=== PATIENT | male | born 1985 | race Caucasian/White ===

== ENCOUNTER 2022-10-02 03:38 | Emergency (ER) | payer OTHER ==
[2022-10-02] MEDS ORDERED: ONDANSETRON 4 MG/2 ML VIAL IVP STA (04:05)
[2022-10-02] MEDS ORDERED: SODIUM CHLORIDE 0.9% 1,000 ML IV STA (04:05)
[2022-10-02] MEDS ORDERED: KETOROLAC 15 MG/ML 1 ML VIAL IVP STA (04:05)
[2022-10-02] MEDS ORDERED: PANTOPRAZOLE 40 MG/10 ML VIAL IVP STA (04:05)
[2022-10-02] MEDS ORDERED: MORPHINE SULFATE 4 MG/ML SYRINGE IVP STA (04:12)
[2022-10-02 04:30] LABS: Basophils % (A) 0 %; Eosinophils # (A) 0.4 k/uL (0-0.7); Eosinophils % (A) 4 %; HCT 46.5 % (39.0-53.0); HGB 15.9 gm/dL (13.0-17.5); Lymphocytes # (A) 2.7 k/uL (1.0-4.8); Lymphocytes % (A) 29 %; MCH 29.1 pg (25.0-35.0); MCHC 34.3 g/dL (31.0-37.0); MCV 84.8 fL (80.0-100.0); Mean Platelet Volume 9.3; Monocytes # (A) 0.5 k/uL (0-1.0); Monocytes % (A) 5 %; Neutrophils # (A) 5.4 k/uL (1.3-7.7); Neutrophils % (A) 60 %; Platelet Count 364 k/uL (150-450); RBC 5.48 m/uL (4.30-5.90); RDW 12.5 % (11.5-15.5); WBC 9.1 k/uL (3.8-10.6)
[2022-10-02 04:39] LABS: INR 0.9 (<1.2); Partial Thromboplastin Time 24.8 sec (22.0-30.0); Prothrombin Time 9.8 sec (9.0-12.0)
[2022-10-02 04:42] LABS: ALT 44 U/L (4-49); AST 32 U/L (17-59); African American GFR (CKD) >90 (>60 ml/min/1.73 sqM); Albumin 4.4 g/dL (3.5-5.0); Alkaline Phosphatase 67 U/L (38-126); Amylase 63 U/L (30-110); Anion Gap 12 mmol/L; Blood Urea Nitrogen 13 mg/dL (9-20); Calcium 9.2 mg/dL (8.4-10.2); Carbon Dioxide 20 mmol/L (22-30); Chloride 105 mmol/L (98-107); Glucose 120 mg/dL (74-99); Lipase 176 U/L (23-300); Non-African American GFR(CKD) >90 (>60 ml/min/1.73 sqM); Sodium 137 mmol/L (137-145); Total Protein 7.2 g/dL (6.3-8.2)
--- NOTE | 2022-10-02 05:35 | ED ---
General Adult HPI - General Chief complaint: Abdominal Pain Stated complaint: abdominal pain Time Seen by Provider: 10/02/22 03:47 Source: patient, RN notes reviewed, old records reviewed Mode of arrival: wheelchair Limitations: no limitations - History of Present Illness Initial comments: Patient is a 37 room now presents emergency Department complaining of abdominal pain. States he is having pain primarily in the epigastric region. No radiation. No chest pain. No shortness of breath. Nausea as well as a few episodes of emesis earlier. Patient does have history of a gallstone and is concerned that is what is causing this. No other significant past medical history. Denies any diarrhea. Denies constipation. Denies any fevers, chills, cough. States last time this happened was 3 years ago. Was told he has a gallstone. However symptoms resolved and he did not follow-up. Patient does not drink a significant amount of alcohol. No history of pancreatitis. No other significant past medical history or complaints at this time. Presents over concern for the abdominal pain. States the pain somewhat does radiate towards his back. - Related Data Previous Rx's Medication Instructions Recorded Ondansetron Odt [Zofran Odt] 4 mg PO Q8HR PRN #6 tab 10/02/22 Allergies Allergy/AdvReac Type Severity Reaction Status Date / Time No Known Allergies Allergy Verified 10/02/22 03:42 Review of Systems ROS Statement: Those systems with pertinent positive or pertinent negative responses have been documented in the HPI. Review of Systems: CONST: Denies fever EYES: Denies blurry vision ENT: Denies nasal congestion C/V: Denies Chest pain RESP: Denies shortness of breath GI: Endorses abdominal pain : Denies dysuria SKIN: Denies rash. MSK: Denies joint pain. NEURO: Denies headache ROS Other: All systems not noted in ROS Statement are negative. Past Medical History Past Medical History: No Reported History History of Any Multi-Drug Resistant Organisms: None Reported Additional Past Surgical History / Comment(s): oral Past Psychological History: No Psychological Hx Reported Smoking Status: Current some day smoker Past Alcohol Use History: Occasional, Rare Past Drug Use History: None Reported General Exam - General Exam Comments Initial Comments: General: Appears in no acute distress. HEAD: Normal with no signs of head trauma. EYES: PERRLA, EOMI, conjunctiva normal, no discharge. ENT: Hearing grossly intact, normal oropharynx. RESPIRATORY: Clear breath sounds bilaterally. No wheezes, rales, or rhonchi. C/V: Regular rate and rhythm. S1 and S2 auscultated, no edema, peripheral pulses 2+ and intact throughout ABD: Abdomen is soft, nondistended. Tender to palpation primarily in the epigastric region. No guarding. No peritoneal signs. No rebound tenderness. EXT: Normal range of motion, no obvious deformity SKIN: No rashes or lesions observed on exposed skin. NEURO: Alert and oriented 4. Limitations: no limitations Course Vital Signs 10/02/22 10/02/22 10/02/22 03:43 04:08 06:56 Temperature 98.4 F 98.1 F Pulse Rate 61 61 Pulse Rate [ 56 L [employer] ] Respiratory 18 16 Rate Blood Pressure 136/91 131/82 O2 Sat by Pulse 96 97 Oximetry Medical Decision Making - Medical Decision Making Was pt. sent in by a medical professional or institution (, PA, ACID PURIFICATION EQUIPMENT OPERATOR, urgent care, hospital, or residential...) When possible be specific @ -No Did you speak to anyone other than the patient for history (EMS, parent, family, police, friend...)? What history was obtained from this source @ -No Did you review nursing and triage notes (agree or disagree)? Why? @ -I reviewed and agree with nursing and triage notes Were old charts reviewed (outside hosp., previous admission, EMS record, old EKG, old radiological studies, urgent care reports/EKG's, residential records)? Report findings @ -No old charts were reviewed Differential Diagnosis (chest pain, altered mental status, abdominal pain women, abdominal pain men, vaginal bleeding, weakness, fever, dyspnea, syncope, headache, dizziness, GI bleed, back pain, seizure, CVA, palpatations, mental health, musculoskeletal)? @ -Differential Abdominal Pain Men: Appendicitis, cholecystitis, diverticulosis, ischemic bowel, pancreatitis, hepatitis, UTI, gastroenteritis, AAA, incarcerated hernia, bowel obstruction, constipation, inflammatory bowel, hepatitis, peptic ulcer disease, splenic infarction, perforated viscus, testicular torsion, this is not meant to be an all-inclusive list EKG interpreted by me (3pts min.). @ -As above X-rays interpreted by me (1pt min.). @ -Chest x-ray reveals no obvious acute cardiopulmonary process. CT interpreted by me (1pt min.). @ -Patient's CT revealed colitis as well as as cholelithiasis with no evidence of other acute process. U/S interpreted by me (1pt. min.). @ -None done What testing was considered but not performed or refused? (CT, X-rays, U/S, labs)? Why? @ -None What meds were considered but not given or refused? Why? @ -None Did you discuss the management of the patient with other professionals (professionals i.e. , PA, ACID PURIFICATION EQUIPMENT OPERATOR, lab, RT, psych nurse, director social, christmas tree farm manager, teacher, army senior officer, mattress spring encaser)? Give summary @ -No Was smoking cessation discussed for >3mins.? @ -No Was critical care preformed (if so, how long)? @ -No Were there social determinants of health that impacted care today? How? (Homelessness, low income, unemployed, alcoholism, drug addiction, transportation, low edu. Level, literacy, decrease access to med. care, penitentiary, rehab)? @ -No Was there de-escalation of care discussed even if they declined (Discuss DNR or withdrawal of care, Hospice)? DNR status @ -No What co-morbidities impacted this encounter? (DM, HTN, Smoking, COPD, CAD, C ancer, CVA, ARF, Chemo, Hep., AIDS, mental health diagnosis, sleep apnea, morbid obesity)? @ -None Was patient admitted / discharged? Hospital course, mention meds given and route, prescriptions, significant lab abnormalities, going to OR and other pertinent info. @ -Based on patient's presentation and physical exam, I'm concerned for acute intra-abdominal process for the patient's current symptoms. We will obtain CT abdomen and pelvis as well as abdominal laboratory studies. Ultrasound not available at this time at night. He was in agreement this plan. He will receive IV medications including Toradol, morphine, Zofran, Protonix, fluids. He will also receive a GI cocktail. Vital signs within acceptable limits. He was in agreement with this plan. Patient's labs are remarkable for a mild elevated bilirubin of 2.0 which is li bouchra secondary to not eating, dehydration, nausea and vomiting earlier as the rest of his labs are within acceptable limits. CT imaging reveals multiple gallstones. No other acute process. Chest x-ray shows no acute cardiopulmonary process. CT reveals colitis and cholelithiasis with no evidence of other acute process. I reevaluated the patient. Pain is improved. We discussed his results. He'll be discharged home at this time with the Zofran. I recommended hydration. Strict Return precautions discussed. He expresses understanding and was in agreement with this plan. No indication for antibiotics at this time is colitis likely viral nature. I will provide the patient with a prescription for Zofran ODT. I instructed the patient to follow up with their PCP in the next 1-3 days. I explained that the patient should return to the emergency department if they experience any worsening symptoms. Strict return precautions were discussed with the patient. The patient expressed understanding of these instructions. I answered all questions that the patient had. The patient was discharged home in good condition with their prescriptions and follow up information. Undiagnosed new problem with uncertain prognosis? @ -No Drug Therapy requiring intensive monitoring for toxicity (Heparin, Nitro, Insulin, Cardizem)? @ -No Were any procedures done? @ -No Diagnosis/symptom? @ -Abdominal pain, colitis Acute, or Chronic, or Acute on Chronic? @ -Acute Uncomplicated (without systemic symptoms) or Complicated (systemic symptoms)? @ -Complicated Side effects of treatment? @ -none Exacerbation, Progression, or Severe Exacerbation] @ -no Poses a threat to life or bodily function? @ -no - Lab Data Result diagrams: 10/02/22 04:13 10/02/22 04:13 Lab Results 10/02/22 10/02/22 10/02/22 Range/Units 04:13 04:13 04:13 WBC 9.1 (3.8-10.6) k/uL RBC 5.48 (4.30-5.90) m/uL Hgb 15.9 (13.0-17.5) gm/dL Hct 46.5 (39.0-53.0) % MCV 84.8 (80.0-100.0) fL MCH 29.1 (25.0-35.0) pg MCHC 34.3 (31.0-37.0) g/dL RDW 12.5 (11.5-15.5) % Plt Count 364 (150-450) k/uL MPV 9.3 Neutrophils % 60 % Lymphocytes % 29 % Monocytes % 5 % Eosinophils % 4 % Basophils % 0 % Neutrophils # 5.4 (1.3-7.7) k/uL Lymphocytes # 2.7 (1.0-4.8) k/uL Monocytes # 0.5 (0-1.0) k/uL Eosinophils # 0.4 (0-0.7) k/uL Basophils # 0.0 (0-0.2) k/uL PT 9.8 (9.0-12.0) sec INR 0.9 (<1.2) APTT 24.8 (22.0-30.0) sec Sodium 137 (137-145) mmol/L Potassium 4.0 (3.5-5.1) mmol/L Chloride 105 (98-107) mmol/L Carbon Dioxide 20 L (22-30) mmol/L Anion Gap 12 mmol/L BUN 13 (9-20) mg/dL Creatinine 0.94 (0.66-1.25) mg/dL Est GFR (CKD-EPI)AfAm >90 (>60 ml/min/1.73 sqM) Est GFR (CKD-EPI)NonAf >90 (>60 ml/min/1.73 sqM) Glucose 120 H (74-99) mg/dL Calcium 9.2 (8.4-10.2) mg/dL Total Bilirubin 2.0 H (0.2-1.3) mg/dL AST 32 (17-59) U/L ALT 44 (4-49) U/L Alkaline Phosphatase 67 (38-126) U/L Total Protein 7.2 (6.3-8.2) g/dL Albumin 4.4 (3.5-5.0) g/dL Amylase 63 (30-110) U/L Lipase 176 (23-300) U/L - EKG Data -: EKG Interpreted by Me EKG Comments: 12-lead Electrocardiogram Interpretation Note EKG was reviewed and interpreted by myself. 12-lead ECG performed at 0352 is interpreted by me as revealing normal sinus rhythm at a rate of 52 beats per minute. [place] is normal. NM interval is 139 ms, QRS duration is 90 ms, QTc is 423 ms.. There were no ST or T wave abnormalities to suggest myocardial ischemia or injury. R wave progression across the precordium was satisfactory. By my interpretation this EKG is non-diagnostic for acute ischemia. Disposition Clinical Impression: Colitis, Cholelithiases Disposition: HOME SELF-CARE Condition: Good Instructions (If sedation given, give patient instructions): Colitis (ED) Prescriptions: Ondansetron Odt [Zofran Odt] 4 mg PO Q8HR PRN #6 tab PRN Reason: Nausea Is patient prescribed a controlled substance at d/c from ED?: No Referrals: None,Stated [Primary Care Provider] - 1-2 days Forms: Area PCPs Time of Disposition: 06:14
[2022-10-02] MEDS ORDERED: MAG HYDROX/AL HYDROX/SIMETH 30 ML, HYOSCYAMINE ELIXIR 10 ML, LIDOCAINE 2% GLYDO JELLY 1... PO STA ×3 (05:52)
--- NOTE | 2022-10-02 06:08 | CT ---
EXAMINATION TYPE: CT abdomen pelvis w con CT DLP: 1395.9 mGycm, Automated exposure control for dose reduction was used. DATE OF EXAM: 10/02/2022 4:56 AM COMPARISON: None. . CLINICAL INDICATION:Male, 37 years old with history of abdominal pain; TECHNIQUE: Standard CT of the abdomen and pelvis following the administration of 100 cc of Isovue 3 00 IV contrast material. Coronal and sagittal reformats were performed. FINDINGS: LOWER CHEST: Posterior dependent subsegmental atelectasis is noted. ABDOMEN LIVER: Unremarkable GALLBLADDER AND BILE DUCTS: Multiple gallstones identified. Prominent gallstone identified within the gallbladder neck. No biliary ductal dilatation. PANCREAS: Unremarkable. SPLEEN: Unremarkable. ADRENAL GLANDS: Unremarkable. KIDNEYS AND URETERS: No evidence of hydronephrosis or renal calculus. The knees enhance symmetrically . Contrast demonstrated within both collecting systems on the delayed phase. PELVIS BLADDER: Incompletely distended but grossly unremarkable. REPRODUCTIVE: Unremarkable. ABDOMEN & PELVIS STOMACH AND BOWEL: Stomach and duodenum are unremarkable. There is long segment circumferential wall thickening of the descending colon and sigmoid colon the appendix is within normal limits. No pericol onic abscess. No pneumatosis. No evidence of bowel obstruction. PERITONEUM: No evidence of pneumoperitoneum or free fluid. VASCULATURE: No evidence of aortic aneurysm. MUSCULOSKELETAL: No acute osseous abnormalities. Mild retrolisthesis of L5 and S1 without evidence of pars defects. The posterior disc osteophyte complex at this level causing mild spinal canal narrowin g. LYMPH NODES: No evidence for lymphadenopathy. SOFT TISSUE/ABDOMINAL WALL: Unremarkable IMPRESSION: 1. Findings suggestive of nonspecific colitis involving the descending and sigmoid colon likely from an infectious/inflammatory etiology. 2. Cholelithiasis.
--- NOTE | 2022-10-02 06:09 | XR ---
EXAMINATION TYPE: XR chest 1V portable DATE OF EXAM: 10/02/2022 4:58 AM COMPARISON: None TECHNIQUE: XR chest 1V portable Portable AP radiograph of the chest. CLINICAL INDICATION:Male, 37 years old with history of abdominal pain; FINDINGS: Lungs/Pleura: There is no evidence of pleural effusion, focal consolidation, or pneumothorax. Pulmonary vascularity: Unremarkable. Heart/mediastinum: Cardiomediastinal silhouette is unremarkable. Musculoskeletal: No acute osseous pathology. IMPRESSION: No acute cardiopulmonary disease/process.
[2022-10-02 06:58] VITALS: BP 131/82; PULSE 61; RESP 16; TEMP 98.1
== END 2022-10-02 06:58 | disposition home or self-care (01) ==
LOC: EC 03:38
DX: K52.9 Noninfective gastroenteritis and colitis, unspecified (principal); K80.20 Calculus of gallbladder without cholecystitis without obstruction; F17.200 Nicotine dependence, unspecified, uncomplicated
CPT/HCPCS: 36415; 93005; 80053; 82150; 83690; 85025; 85610; 85730; 71045; 74177; 99285; 96374; 96375 ×3; 96361; J2270; J2405; J1885; C9113; Q9967

== ENCOUNTER 2022-11-26 11:38 | Emergency (ER) | payer OTHER ==
[2022-11-26 11:43] VITALS: TEMP 97.8
[2022-11-26] MEDS ORDERED: KETOROLAC 15 MG/ML 1 ML VIAL IVP STA (11:55)
[2022-11-26] MEDS ORDERED: SODIUM CHLORIDE 0.9% 500 ML 500 ML IV STA (11:55)
[2022-11-26] MEDS ORDERED: ONDANSETRON 4 MG/2 ML VIAL IVP STA (11:55)
--- NOTE | 2022-11-26 11:57 | ED ---
General Adult HPI - General Chief complaint: Abdominal Pain Stated complaint: Abd Pain Time Seen by Provider: 11/26/22 11:50 Source: patient, RN notes reviewed, old records reviewed Mode of arrival: ambulatory Limitations: no limitations - History of Present Illness Initial comments: This is a 37-year-old male who presents to the emergency department complaining that he had epigastric and mid abdominal pain. Patient states he thought it was his gallbladder because he was told before he had a gallbladder attack area patient states is diffuse pain it makes him very nauseated and he has been vomiting this morning. Patient states he ate [place] last episode of his and child and no one sick. Patient denies any diarrhea. Patient states he's h ad no fever chills. Patient denies any chest pain difficulty breathing shortness of breath. Patient states she initially thought was gastric reflux so he drank some Pepcid and took a [place] at home prior to coming in - Related Data Previous Rx's Medication Instructions Recorded Ondansetron Odt [Zofran Odt] 4 mg PO Q8HR PRN #6 tab 10/02/22 Allergies Allergy/AdvReac Type Severity Reaction Status Date / Time No Known Allergies Allergy Verified 11/26/22 11:43 Review of Systems ROS Statement: Those systems with pertinent positive or pertinent negative responses have been documented in the HPI. ROS Other: All systems not noted in ROS Statement are negative. Past Medical History Past Medical History: No Reported History History of Any Multi-Drug Resistant Organisms: None Reported Additional Past Surgical History / Comment(s): oral Past Psychological History: No Psychological Hx Reported Smoking Status: Current some day smoker Past Alcohol Use History: Occasional, Rare Past Drug Use History: None Reported General Exam - General Exam Comments Initial Comments: GENERAL: Patient is well-developed and well-nourished. Patient is nontoxic and well- hydrated and is in mild distress. ENT: Neck is soft and supple. No significant lymphadenopathy is noted. Oropharynx is clear. Moist mucous membranes. Neck has full range of motion without eliciting any pain. EYES: The sclera were anicteric and conjunctiva were pink and moist. Extraocular movements were intact and pupils were equal round and reactive to light. Eyelids were unremarkable. PULMONARY: Unlabored respirations. Good breath sounds bilaterally. No audible rales rhonchi or wheezing was noted. CARDIOVASCULAR: There is a regular rate and rhythm without any murmurs gallops or rubs. ABDOMEN: Soft and nontender with normal bowel sounds. I cannot palpate any area of tenderness at all. No palpable organomegaly was noted. There is no palpable pulsatile mass. SKIN: Skin is clear with no lesions or rashes and otherwise unremarkable. NEUROLOGIC: Patient is alert and oriented x3. Cranial nerves II through XII are grossly intact. Motor and sensory are also intact. Normal speech, volume and content. Symmetrical smile. MUSCULOSKELETAL: Normal extremities with adequate strength and full range of motion. No lower extremity swelling or edema. No calf tenderness. LYMPHATICS: No significant lymphadenopathy is noted PSYCHIATRIC: Normal psychiatric evaluation. Limitations: no limitations Course Vital Signs 11/26/22 11/26/22 11:40 13:36 Temperature 97.8 F Pulse Rate 45 L 47 L Respiratory 16 18 Rate Blood Pressure 149/82 138/93 O2 Sat by Pulse 100 99 Oximetry Medical Decision Making - Medical Decision Making EKG was interpreted by myself. EKG shows a sinus bradycardia at 43 bpm W[place] interval 247 dresses 91 Q-T intervals 471 QTC is 418. Patient's EKG shows no ST segment elevation or depression. Was pt. sent in by a medical professional or institution (, PA, GAME AUTHOR, urgent care, hospital, or jail...) When possible be specific @ -No Did you speak to anyone other than the patient for history (EMS, parent, family, police, friend...)? What history was obtained from this source @ -No Did you review nursing and triage notes (agree or disagree)? Why? @ -I reviewed and agree with nursing and triage notes Were old charts reviewed (outside hosp., previous admission, EMS record, old EKG, old radiological studies, urgent care reports/EKG's, jail records)? Report findings @ -I reviewed prior CAT scans on this patient. Differential Diagnosis (chest pain, altered mental status, abdominal pain women, abdominal pain men, vaginal bleeding, weakness, fever, dyspnea, syncope, headache, dizziness, GI bleed, back pain, seizure, CVA, palpatations, mental health, musculoskeletal)? @ -Differential Abdominal Pain Men: Appendicitis, cholecystitis, diverticulosis, ischemic bowel, pancreatitis, hepatitis, UTI, gastroenteritis, AAA, incarcerated hernia, bowel obstruction, constipation, inflammatory bowel, hepatitis, peptic ulcer disease, splenic infarction, perforated viscus, testicular torsion, this is not meant to be an all-inclusive list EKG interpreted by me (3pts min.). @ -As above X-rays interpreted by me (1pt min.). @ -None done CT interpreted by me (1pt min.). @ -None done U/S interpreted by me (1pt. min.). @ -Ultrasound showed cholelithiasis What testing was considered but not performed or refused? (CT, X-rays, U/S, labs)? Why? @ -None What meds were considered but not given or refused? Why? @ -None Did you discuss the management of the patient with other professionals (prof wilfredo i.e. , PA, GAME AUTHOR, lab, RT, psych nurse, clinical social work aide, stogie packer, teacher, stream control officer, showcase maker)? Give summary @ -No Was smoking cessation discussed for >3mins.? @ -No Was critical care preformed (if so, how long)? @ -No Were there social determinants of health that impacted care today? How? (Homelessness, low income, unemployed, alcoholism, drug addiction, transportat ion, low edu. Level, literacy, decrease access to med. care, senior living, rehab)? @ -No Was there de-escalation of care discussed even if they declined (Discuss DNR or withdrawal of care, Hospice)? DNR status @ -No What co-morbidities impacted this encounter? (DM, HTN, Smoking, COPD, CAD, Cancer, CVA, ARF, Chemo, Hep., AIDS, mental health diagnosis, sleep apnea, morbid obesity)? @ -None Was patient admitted / discharged? Hospital course, mention meds given and route, prescriptions, significant lab abnormalities, going to OR and other pertinent info. @ -Patient received Zofran and some fluids and was feeling considerably better and will follow-up as an outpatient. Patient's ultrasound showed no acute cholecystitis patient had no right upper quadrant abdominal tenderness on palpation. Undiagnosed new problem with uncertain prognosis? @ -No Drug Therapy requiring intensive monitoring for toxicity (Heparin, Nitro, Insulin, Cardizem)? @ -No Were any procedures done? @ -No Diagnosis/symptom? @ -Abdominal pain Acute, or Chronic, or Acute on Chronic? @ -Acute Uncomplicated (without systemic symptoms) or Complicated (systemic symptoms)? @ -Complicated Side effects of treatment? @ -No Exacerbation, Progression, or Severe Exacerbation? @ -No Poses a threat to life or bodily function? How? (Chest pain, [place], [place], pneumonia, PE, COPD, DKA, ARF, appy, cholecystitis, CVA, Diverticulitis, Homicidal, Suicidal, threat to staff... and all critical care pts) @ -No - Lab Data Result diagrams: 11/26/22 12:06 11/26/22 12:06 Lab Results 11/26/22 11/26/22 11/26/22 Range/Units 12:06 12:06 12:06 WBC 10.4 (3.8-10.6) k/uL RBC 5.74 (4.30-5.90) m/uL Hgb 16.7 (13.0-17.5) gm/dL Hct 48.3 (39.0-53.0) % MCV 84.2 (80.0-100.0) fL MCH 29.1 (25.0-35.0) pg MCHC 34.5 (31.0-37.0) g/dL RDW 12.4 (11.5-15.5) % Plt Count 384 (150-450) k/uL MPV 9.1 Neutrophils % 79 % Lymphocytes % 14 % Monocytes % 4 % Eosinophils % 2 % Basophils % 0 % Neutrophils # 8.3 H (1.3-7.7) k/uL Lymphocytes # 1.5 (1.0-4.8) k/uL Monocytes # 0.4 (0-1.0) k/uL Eosinophils # 0.2 (0-0.7) k/uL Basophils # 0.0 (0-0.2) k/uL Sodium 136 L (137-145) mmol/L Potassium 4.0 (3.5-5.1) mmol/L Chloride 107 (98-107) mmol/L Carbon Dioxide 23 (22-30) mmol/L Anion Gap 6 mmol/L BUN 10 (9-20) mg/dL Creatinine 0.96 (0.66-1.25) mg/dL Est GFR (CKD-EPI)AfAm >90 (>60 ml/min/1.73 sqM) Est GFR (CKD-EPI)NonAf >90 (>60 ml/min/1.73 sqM) Glucose 125 H (74-99) mg/dL Plasma Lactic Acid Srikanth 1.9 (0.7-2.0) mmol/L Calcium 9.2 (8.4-10.2) mg/dL Total Bilirubin 2.0 H (0.2-1.3) mg/dL AST 30 (17-59) U/L ALT 40 (4-49) U/L Alkaline Phosphatase 76 (38-126) U/L Total Protein 7.2 (6.3-8.2) g/dL Albumin 4.4 (3.5-5.0) g/dL Amylase 63 (30-110) U/L Lipase 124 (23-300) U/L Disposition Clinical Impression: Abdominal pain Disposition: HOME SELF-CARE Instructions (If sedation given, give patient instructions): Abdominal Pain (ED) Is patient prescribed a controlled substance at d/c from ED?: No Referrals: None,Stated [Primary Care Provider] - 1-2 days Time of Disposition: 14:00
[2022-11-26 12:23] LABS: Basophils % (A) 0 %; Eosinophils # (A) 0.2 k/uL (0-0.7); Eosinophils % (A) 2 %; HCT 48.3 % (39.0-53.0); HGB 16.7 gm/dL (13.0-17.5); Lymphocytes # (A) 1.5 k/uL (1.0-4.8); Lymphocytes % (A) 14 %; MCH 29.1 pg (25.0-35.0); MCHC 34.5 g/dL (31.0-37.0); MCV 84.2 fL (80.0-100.0); Mean Platelet Volume 9.1; Monocytes # (A) 0.4 k/uL (0-1.0); Monocytes % (A) 4 %; Neutrophils # (A) 8.3 k/uL (1.3-7.7); Neutrophils % (A) 79 %; Platelet Count 384 k/uL (150-450); RBC 5.74 m/uL (4.30-5.90); RDW 12.4 % (11.5-15.5); WBC 10.4 k/uL (3.8-10.6)
--- NOTE | 2022-11-26 12:42 | US ---
EXAMINATION TYPE: US gallbladder DATE OF EXAM: 11/26/2022 COMPARISON: CT CLINICAL INDICATION: Male, 37 years old with history of Epigastric abdominal pain; ABD pain, known ga llstones TECHNIQUE: Multiple sonographic images of the right upper quadrant are obtained. FINDINGS: EXAM MEASUREMENTS: Liver Length: 19.1 cm Gallbladder Wall: 0.4 cm CBD: 0.6 cm Right Kidney: 10.1 x 4.4 x 4.9 cm FINANCIAL SALES ASSISTANT NOTES: Pancreas: Obscured by bowel gas Liver: Enlarged Gallbladder: multiple gallstones with sludge, wall thickened Evidence for sonographic Perdue's sign: Yes CBD: wnl Right Kidney: wnl Pancreas is obscured by overlying bowel gas. Mildly enlarged without focal lesion. Cholelithiasis dem onstrated with biliary sludge and minimal prominence of the wall. No pericholecystic fluid. Positive sonographic Perdue sign. Common bile duct within normal limits. Right kidney is unremarkable without evidence of hydronephrosis, nephrolithiasis, or solid mass. IMPRESSION: 1. Cholelithiasis with minimal wall prominence and reported positive sonographic Perdue sign. No per icholecystic fluid. This is raises concern for acute cholecystitis. This can be further evaluated wit h nuclear medicine HIDA scan as clinically indicated. 2. Hepatomegaly.
[2022-11-26 13:03] LABS: ALT 40 U/L (4-49); AST 30 U/L (17-59); African American GFR (CKD) >90 (>60 ml/min/1.73 sqM); Albumin 4.4 g/dL (3.5-5.0); Alkaline Phosphatase 76 U/L (38-126); Amylase 63 U/L (30-110); Anion Gap 6 mmol/L; Blood Urea Nitrogen 10 mg/dL (9-20); Calcium 9.2 mg/dL (8.4-10.2); Carbon Dioxide 23 mmol/L (22-30); Chloride 107 mmol/L (98-107); Glucose 125 mg/dL (74-99); Lipase 124 U/L (23-300); Non-African American GFR(CKD) >90 (>60 ml/min/1.73 sqM); Sodium 136 mmol/L (137-145); Total Protein 7.2 g/dL (6.3-8.2)
[2022-11-26 13:37] VITALS: BP 138/93; PULSE 47; RESP 18
[2022-11-26] MEDS ORDERED: ONDANSETRON 4 MG ODT STARTER PACK 2 TAB BTL PO STA (14:18)
== END 2022-11-26 14:32 | disposition home or self-care (01) ==
LOC: EC 11:38
DX: K80.20 Calculus of gallbladder without cholecystitis without obstruction (principal); F17.200 Nicotine dependence, unspecified, uncomplicated
CPT/HCPCS: 36415; 93005; 80053; 82150; 83605; 83690; 85025; 76705; 99285; 96374; 96375; 96361; J2405; J1885; S0119

== ENCOUNTER 2022-11-27 01:33 | Inpatient (IN) | payer OTHER ==
[2022-11-27] MEDS ORDERED: KETOROLAC 15 MG/ML 1 ML VIAL IVP STA (01:52)
[2022-11-27] MEDS ORDERED: PANTOPRAZOLE 40 MG/10 ML VIAL IVP STA (01:52)
[2022-11-27] MEDS ORDERED: ONDANSETRON 4 MG/2 ML VIAL IVP STA (01:52)
[2022-11-27] MEDS ORDERED: SODIUM CHLORIDE 0.9% 1,000 ML IV STA (01:52)
[2022-11-27] MEDS ORDERED: HYDROmorphone 1 MG/ML 1 ML SYRINGE IVP STA ×2 (01:56→03:44)
--- NOTE | 2022-11-27 01:57 | ED ---
Recheck HPI - General Chief Complaint: Abdominal Pain Stated Complaint: Abd Pain Time Seen by Provider: 11/27/22 01:52 Source: patient, RN notes reviewed, old records reviewed Mode of arrival: wheelchair Limitations: no limitations - History of Present Illness Initial Comments: This is a 37-year-old male to the emergency department today for evaluation today. She is presenting for evaluation of abdominal pain severe severe epigastric right upper quadrant abdominal pain with nausea. Patient does have episodes of nausea vomiting multiple episodes of vomiting prior to arrival. Patient was in the ER last night for similar complaint. Maybe like 5 or 6 years with prior ER evaluations looking 7 visits for similar symptoms. Ration states he gets varying opinion as to what the cause of his abdominal pain some stated his gallbladder and have thought about removing in the past but no surgery at this time no prior history of abdominal surgery no medical history MD Complaint: other (Recurrent abdominal pain) -: hour(s) Returns Today for: persistent/worsening pain related to initial visit Symptoms Since Prior Visit: worsening pain Associated Symptoms: nausea, abdominal pain Treatments Prior to Arrival: Given Pain Meds on - Related Data Previous Rx's Medication Instructions Recorded Acetaminophen Tab [Tylenol] 1,000 mg PO Q6HR PRN #30 tablet 11/30/22 Ibuprofen [Motrin] 600 mg PO Q8HR PRN #30 tab 11/30/22 Allergies Allergy/AdvReac Type Severity Reaction Status Date / Time No Known Allergies Allergy Verified 11/27/22 10:48 Review of Systems ROS Statement: Those systems with pertinent positive or pertinent negative responses have been documented in the HPI. ROS Other: All systems not noted in ROS Statement are negative. Past Medical History Past Medical History: No Reported History History of Any Multi-Drug Resistant Organisms: None Reported Additional Past Surgical History / Comment(s): oral Past Psychological History: No Psychological Hx Reported Smoking Status: Current some day smoker Past Alcohol Use History: Occasional, Rare Past Drug Use History: None Reported General Exam Limitations: no limitations General appearance: alert, in no apparent distress Head exam: Present: atraumatic, normocephalic, normal inspection Eye exam: Present: normal appearance, PERRL, EOMI. Absent: scleral icterus, conjunctival injection, periorbital swelling ENT exam: Present: normal exam, mucous membranes moist Neck exam: Present: normal inspection. Absent: tenderness, meningismus, lymphadenopathy Respiratory exam: Present: normal lung sounds bilaterally. Absent: respiratory distress, wheezes, rales, rhonchi, stridor Cardiovascular Exam: Present: regular rate, normal rhythm, normal heart sounds. Absent: systolic murmur, diastolic murmur, rubs, gallop, clicks GI/Abdominal exam: Present: soft, normal bowel sounds. Absent: distended, tenderness, guarding, rebound, rigid Extremities exam: Present: normal inspection, full ROM, normal capillary refill. Absent: tenderness, pedal edema, joint swelling, calf tenderness Back exam: Present: normal inspection Neurological exam: Present: alert, oriented X3, CN II-XII intact Psychiatric exam: Present: normal affect, normal mood Skin exam: Present: warm, dry, intact, normal color. Absent: rash Course Vital Signs 11/27/22 11/27/22 11/27/22 01:35 04:00 04:30 Temperature 99.1 F Pulse Rate 54 L 54 L 54 L Respiratory 18 17 17 Rate Blood Pressure 138/86 138/86 O2 Sat by Pulse 98 95 95 Oximetry 11/27/22 11/27/22 11/27/22 05:00 06:00 06:41 Temperature Pulse Rate 49 L Respiratory 19 Rate Blood Pressure 138/86 138/86 155/92 O2 Sat by Pulse 94 L 95 Oximetry 11/27/22 11/27/22 07:00 09:00 Temperature Pulse Rate 46 L 61 Respiratory 21 13 Rate Blood Pressure 155/92 155/92 O2 Sat by Pulse 93 L 94 L Oximetry - Reevaluation(s) Reevaluation #1: 11/27/22 02:11 Medical record is reviewed Reevaluation #2: Patient still remains in significant pain throughout ER stay Reevaluation #3: Patient informed of results and questions answered Reevaluation #4: 11/27/22 02:11 Was pt. sent in by a medical professional or institution (, PA, REVENUE RESEARCH ANALYST, urgent care, hospital, or intermediate...) When possible be specific @ -no Did you speak to anyone other than the patient for history (EMS, parent, family, police, friend...)? What history was obtained from this source @ -no Did you review nursing and triage notes (agree or disagree)? Why? @ -agree Are old charts reviewed (outside hosp., previous admission, EMS record, old EKG, old radiological studies, urgent care reports/EKG's, intermediate records)? Report findings @ -yes Differential Diagnosis (chest pain, altered mental status, abdominal pain women, abdominal pain men, vaginal bleeding, weakness, fever, dyspnea, syncope, headache, dizziness, GI bleed, back pain, seizure, CVA, palpatations, mental health, musculoskeletal)? @ -prior EKG interpreted by me (3pts min.). @ -yes X-rays interpreted by me (1pt min.). @ -no CT interpreted by me (1pt min.). @ -yes U/S interpreted by me (1pt. min.). @ -no What testing was considered but not performed or refused? (CT, X-rays, U/S, labs)? Why? @ -none What meds were considered but not given or refused? Why? @ -none Did you discuss the management of the patient with other professionals (professionals i.e. , PA, REVENUE RESEARCH ANALYST, lab, RT, psych nurse, school social worker, armature balancer, teacher, principal gifts officer, assistant case manager)? Give summary @ -no Was smoking cessation discussed for >3mins.? @ -no Was critical care preformed (if so, how long)? @ -no Were there social determinants of health that impacted care today? How? (Homelessness, low income, unemployed, alcoholism, drug addiction, transportation, low edu. Level, literacy, decrease access to med. care, skilled nursing, rehab)? @ -none Was there de-escalation of care discussed even if they declined (Discuss DNR or withdrawal of care, Hospice)? DNR status @ -no What co-morbidities impacted this encounter? (DM, HTN, Smoking, COPD, CAD, Cancer, CVA, ARF, Chemo, Hep., AIDS, mental health diagnosis, sleep apnea, morbid obesity)? @ -none Was patient admitted / discharged? Hospital course, mention meds given and route, prescriptions, significant lab abnormalities, going to OR and other pertinent info. @ - 37 male to the emergency department with recurrent severe abdominal pain upper quadrant abdominal pain with nausea vomiting recurrence of cholecystitis with history of cholelithiasis. Patient does have acute cholecystitis place on antibiotics and pain control will be admitted for surgical evaluation management Admitted Undiagnosed new problem with uncertain prognosis? @ -no Drug Therapy requiring intensive monitoring for toxicity (Heparin, Nitro, Insulin, Cardizem)? @ -no Were any procedures done? @ -no Diagnosis/symptom? @ -Acute cholecystitis, bradycardia Acute, or Chronic, or Acute on Chronic? @ -Acute Uncomplicated (without systemic symptoms) or Complicated (systemic symptoms)? @ -Complicated Side effects of treatment? @ -no Exacerbation, Progression, or Severe Exacerbation? @ -exacerbation Poses a threat to life or bodily function? How? (Chest pain, [place], [place], pneumonia, PE, COPD, DKA, ARF, appy, cholecystitis, CVA, Diverticulitis, Homicidal, Suicidal, threat to staff... and all critical care pts) @ -yes significant recurrence of cholecystitis Reevaluation #5: 11/27/22 02:11 Differential Abdominal Pain Men: Appendicitis, cholecystitis, diverticulosis, ischemic bowel, pancreatitis, hepatitis, UTI, gastroenteritis, AAA, incarcerated hernia, bowel obstruction, constipation, inflammatory bowel, hepatitis, peptic ulcer disease, splenic infarction, perforated viscus, testicular torsion, this is not meant to be an all-inclusive list - Consultations Consultation #1: Spoke with Dr. Watters who agrees to admit this patient Medical Decision Making - Medical Decision Making 37 male to the emergency department with recurrent severe abdominal pain upper quadrant abdominal pain with nausea vomiting recurrence of cholecystitis with history of cholelithiasis. Patient does have acute cholecystitis place on antibiotics and pain control will be admitted for surgical evaluation management - Lab Data Result diagrams: 11/30/22 04:08 11/30/22 04:08 Lab Results 11/27/22 11/27/22 11/27/22 Range/Units 02:22 02:22 02:22 WBC 12.7 H (3.8-10.6) k/uL RBC 5.56 (4.30-5.90) m/uL Hgb 16.4 (13.0-17.5) gm/dL Hct 46.8 (39.0-53.0) % MCV 84.2 (80.0-100.0) fL MCH 29.5 (25.0-35.0) pg MCHC 35.0 (31.0-37.0) g/dL RDW 12.6 (11.5-15.5) % Plt Count 300 (150-450) k/uL MPV 11.2 Immature Gran % (Auto) % Absolute Nucleated RBC % Neutrophils % 76 % Lymphocytes % 16 % Monocytes % 6 % Eosinophils % 1 % Basophils % 0 % Immature Gran # X 10*3/uL Neutrophils # 9.6 H (1.3-7.7) k/uL Lymphocytes # 2.1 (1.0-4.8) k/uL Monocytes # 0.8 (0-1.0) k/uL Eosinophils # 0.1 (0-0.7) k/uL Basophils # 0.0 (0-0.2) k/uL NRBC/100 WBC Diff (0.00-0.01) X 10*3/uL PT (9.0-12.0) sec INR (<1.2) APTT (22.0-30.0) sec Sodium 138 (137-145) mmol/L Potassium 4.0 (3.5-5.1) mmol/L Chloride 105 (98-107) mmol/L Carbon Dioxide 22 (22-30) mmol/L Anion Gap 11 mmol/L BUN 9 (9-20) mg/dL Creatinine 1.00 (0.66-1.25) mg/dL Est GFR (CKD-EPI) (>=60) Est GFR (CKD-EPI)AfAm >90 (>60 ml/min/1.73 sqM) Est GFR (CKD-EPI)NonAf >90 (>60 ml/min/1.73 sqM) BUN/Creatinine Ratio (12.00-20.00) Ratio Glucose 122 H (74-99) mg/dL Lactic Ac Sepsis Rflx Plasma Lactic Acid Srikanth 2.3 H* (0.7-2.0) mmol/L Calcium 8.6 (8.4-10.2) mg/dL Total Bilirubin 1.6 H (0.2-1.3) mg/dL AST 27 (17-59) U/L ALT 35 (4-49) U/L Alkaline Phosphatase 73 (38-126) U/L Total Protein 6.9 (6.3-8.2) g/dL Albumin 4.2 (3.5-5.0) g/dL Globulin (1.6-3.3) d/dL Albumin/Globulin Ratio (1.60-3.17) Ratio Amylase 70 (30-110) U/L Lipase 238 (23-300) U/L 11/27/22 11/27/22 11/27/22 Range/Units 03:19 03:40 06:30 WBC (3.8-10.6) k/uL RBC (4.30-5.90) m/uL Hgb (13.0-17.5) gm/dL Hct (39.0-53.0) % MCV (80.0-100.0) fL MCH (25.0-35.0) pg MCHC (31.0-37.0) g/dL RDW (11.5-15.5) % Plt Count (150-450) k/uL MPV Immature Gran % (Auto) % Absolute Nucleated RBC % Neutrophils % % Lymphocytes % % Monocytes % % Eosinophils % % Basophils % % Immature Gran # X 10*3/uL Neutrophils # (1.3-7.7) k/uL Lymphocytes # (1.0-4.8) k/uL Monocytes # (0-1.0) k/uL Eosinophils # (0-0.7) k/uL Basophils # (0-0.2) k/uL NRBC/100 WBC Diff (0.00-0.01) X 10*3/uL PT 10.2 (9.0-12.0) sec INR 1.0 (<1.2) APTT 22.1 (22.0-30.0) sec Sodium (137-145) mmol/L Potassium (3.5-5.1) mmol/L Chloride (98-107) mmol/L Carbon Dioxide (22-30) mmol/L Anion Gap mmol/L BUN (9-20) mg/dL Creatinine (0.66-1.25) mg/dL Est GFR (CKD-EPI) (>=60) Est GFR (CKD-EPI)AfAm (>60 ml/min/1.73 sqM) Est GFR (CKD-EPI)NonAf (>60 ml/min/1.73 sqM) BUN/Creatinine Ratio (12.00-20.00) Ratio Glucose (74-99) mg/dL Lactic Ac Sepsis Rflx Y Plasma Lactic Acid Srikanth 1.4 (0.7-2.0) mmol/L Calcium (8.4-10.2) mg/dL Total Bilirubin (0.2-1.3) mg/dL AST (17-59) U/L ALT (4-49) U/L Alkaline Phosphatase (38-126) U/L Total Protein (6.3-8.2) g/dL Albumin (3.5-5.0) g/dL Globulin (1.6-3.3) d/dL Albumin/Globulin Ratio (1.60-3.17) Ratio Amylase (30-110) U/L Lipase (23-300) U/L 11/28/22 11/28/22 Range/Units 06:15 06:15 WBC 12.41 H (3.8-10.6) k/uL RBC 4.88 (4.30-5.90) m/uL Hgb 14.1 (13.0-17.5) gm/dL Hct 42.1 (39.0-53.0) % MCV 86.3 (80.0-100.0) fL MCH 28.9 (25.0-35.0) pg MCHC 33.5 (31.0-37.0) g/dL RDW 12.4 (11.5-15.5) % Plt Count 310 (150-450) k/uL MPV 10.7 Immature Gran % (Auto) 0.50 % Absolute Nucleated RBC 0 % Neutrophils % 77.2 % Lymphocytes % 14.7 % Monocytes % 6.8 % Eosinophils % 0.6 % Basophils % 0.2 % Immature Gran # 0.06 X 10*3/uL Neutrophils # 9.58 H (1.3-7.7) k/uL Lymphocytes # 1.82 (1.0-4.8) k/uL Monocytes # 0.85 (0-1.0) k/uL Eosinophils # 0.07 (0-0.7) k/uL Basophils # 0.03 (0-0.2) k/uL NRBC/100 WBC Diff 0 (0.00-0.01) X 10*3/uL PT (9.0-12.0) sec INR (<1.2) APTT (22.0-30.0) sec Sodium 140 (137-145) mmol/L Potassium 3.7 (3.5-5.1) mmol/L Chloride 109 (98-107) mmol/L Carbon Dioxide 20.2 L (22-30) mmol/L Anion Gap 10.80 mmol/L BUN 10.9 (9-20) mg/dL Creatinine 1.0 (0.66-1.25) mg/dL Est GFR (CKD-EPI) 100 (>=60) Est GFR (CKD-EPI)AfAm (>60 ml/min/1.73 sqM) Est GFR (CKD-EPI)NonAf (>60 ml/min/1.73 sqM) BUN/Creatinine Ratio 10.90 L (12.00-20.00) Ratio Glucose 108 (74-99) mg/dL Lactic Ac Sepsis Rflx Plasma Lactic Acid Srikanth (0.7-2.0) mmol/L Calcium 8.7 (8.4-10.2) mg/dL Total Bilirubin 2.8 H (0.2-1.3) mg/dL AST 20 (17-59) U/L ALT 32 (4-49) U/L Alkaline Phosphatase 61 (38-126) U/L Total Protein 5.7 L (6.3-8.2) g/dL Albumin 4.0 (3.5-5.0) g/dL Globulin 1.7 (1.6-3.3) d/dL Albumin/Globulin Ratio 2.35 (1.60-3.17) Ratio Amylase (30-110) U/L Lipase (23-300) U/L - EKG Data -: EKG Interpreted by Me (EKG is sinus tachycardia 40 [place] 142 QRS 160 QTC 40 to) Rate: bradycardia - Radiology Data Radiology results: report reviewed (CT of the abdomen and pelvis is positive for cholecystitis By me), image reviewed Disposition Clinical Impression: Choledocholithiasis, Abdominal pain, Acute abdomen, Cholecystitis, Cholelithiasis, Bradycardia Disposition: ADMITTED IP TO THIS [facility] Condition: Stable
[2022-11-27 02:59] LABS: ALT 35 U/L (4-49); AST 27 U/L (17-59); African American GFR (CKD) >90 (>60 ml/min/1.73 sqM); Albumin 4.2 g/dL (3.5-5.0); Alkaline Phosphatase 73 U/L (38-126); Amylase 70 U/L (30-110); Anion Gap 11 mmol/L; Blood Urea Nitrogen 9 mg/dL (9-20); Calcium 8.6 mg/dL (8.4-10.2); Carbon Dioxide 22 mmol/L (22-30); Chloride 105 mmol/L (98-107); Glucose 122 mg/dL (74-99); Lipase 238 U/L (23-300); Non-African American GFR(CKD) >90 (>60 ml/min/1.73 sqM); Sodium 138 mmol/L (137-145); Total Bilirubin 1.6 mg/dL (0.2-1.3); Total Protein 6.9 g/dL (6.3-8.2)
[2022-11-27 03:35] LABS: Basophils % (A) 0 %; Eosinophils # (A) 0.1 k/uL (0-0.7); Eosinophils % (A) 1 %; HCT 46.8 % (39.0-53.0); HGB 16.4 gm/dL (13.0-17.5); Lymphocytes # (A) 2.1 k/uL (1.0-4.8); Lymphocytes % (A) 16 %; MCH 29.5 pg (25.0-35.0); MCV 84.2 fL (80.0-100.0); Mean Platelet Volume 11.2; Monocytes # (A) 0.8 k/uL (0-1.0); Monocytes % (A) 6 %; Neutrophils # (A) 9.6 k/uL (1.3-7.7); Neutrophils % (A) 76 %; Platelet Count 300 k/uL (150-450); RBC 5.56 m/uL (4.30-5.90); RDW 12.6 % (11.5-15.5); WBC 12.7 k/uL (3.8-10.6)
[2022-11-27 04:25] LABS: Partial Thromboplastin Time 22.1 sec (22.0-30.0); Prothrombin Time 10.2 sec (9.0-12.0)
--- NOTE | 2022-11-27 07:12 | CT ---
EXAMINATION TYPE: CT abdomen pelvis w con CT DLP: 1559.3 mGycm, Automated exposure control for dose reduction was used. DATE OF EXAM: 11/27/2022 3:35 AM COMPARISON: CT abdomen pelvis most recent from 10/02/2022. CLINICAL INDICATION:Male, 37 years old with history of pain; TECHNIQUE: Standard CT of the abdomen and pelvis following the administration of 100 cc of Isovue 3 00 IV contrast material. Coronal and sagittal reformats were performed. FINDINGS: LOWER CHEST: Posterior dependent subsegmental atelectasis is noted. ABDOMEN LIVER: Unremarkable GALLBLADDER AND BILE DUCTS: Cholelithiasis with surrounding fat stranding. No biliary ductal dilatati on. PANCREAS: Unremarkable. SPLEEN: Unremarkable. ADRENAL GLANDS: Unremarkable. KIDNEYS AND URETERS: No evidence of hydronephrosis or renal calculus. The kidneys enhance symmetrical ly. Contrast is demonstrated within both collecting systems on the delayed phase. PELVIS BLADDER: Unremarkable REPRODUCTIVE: Unremarkable. ABDOMEN & PELVIS STOMACH AND BOWEL: Stomach and duodenum are unremarkable. No focal bowel wall thickening or surroundi ng inflammatory changes. The appendix is within normal limits. No evidence of bowel obstruction. PERITONEUM: No evidence of pneumoperitoneum or free fluid. VASCULATURE: No evidence of aortic aneurysm. MUSCULOSKELETAL: No acute osseous abnormalities. Degenerative disc disease at L5-S1 with disc space n arrowing and endplate sclerosis with posterior broad-based disc bulge. LYMPH NODES: No gross evidence for lymphadenopathy. SOFT TISSUE/ABDOMINAL WALL: Unremarkable IMPRESSION: Findings most consistent with acute cholecystitis with gallstones and surrounding inflammatory change s. This can be further confirmed with abdominal ultrasound.
[2022-11-27] MEDS ORDERED: NALOXONE 0.4 MG/ML 1 ML VIAL IV PRN (08:04)
[2022-11-27] MEDS: HYDROmorphone 1 MG/ML 1 ML SYRINGE IVP PRN ×2 (08:11→11:16)
[2022-11-27] MEDS: SODIUM CHLORIDE 0.9% 1,000 ML IV SCH ×3 (08:11→23:45)
--- NOTE | 2022-11-27 13:41 | P.GSHP ---
History of Present Illness H&P Date: 11/27/22 CHIEF COMPLAINT: Gallstones HISTORY OF PRESENT ILLNESS: The patient is a 37 year old female who comes in with known gallstones for over 5 years. Reports heartburn with attack. Describes sharp crampy intermittent right upper quadrant pain every 3 hrs. He ate mac and cheese from [employer] prior to his attack. Denies personal or family history of cardiac disease. He is admitted for acute cholecystitis. PAST MEDICAL HISTORY: See list and reviewed PAST SURGICAL HISTORY: See list and reviewed MEDICATIONS: See list and reviewed ALLERGIES: See list and reviewed SOCIAL HISTORY: See list and reviewed FAMILY HISTORY: See list and reviewed REVIEW OF ORGAN SYSTEMS: CONSTITUTIONAL: No fevers or chills. No recent weight loss. EYES: Denies any trouble with vision. No glasses. HEENT: No difficulties with hearing. No nosebleeds. No difficulty swallowing. RESPIRATORY: Denies pneumonia. Denies any troubles with breathing or dyspnea on exertion. Has tobacco abuse disorder. CARDIOVASCULAR: Denies any chest pain, palpitations, or recent heart attacks. GASTROINTESTINAL: Denies fatty food intolerance. Denies change in bowel habits and gas bloat. GENITOURINARY: Denies any blood in urine or increased urinary frequency. NEUROLOGICAL: Denies any numbness or tingling along the distal extremities. No seizure disorders or headaches. MUSCULOSKELETAL: Denies any back pain, stiffness or joint arthritis. SKIN: No current skin cancer. No rash. PSYCHIATRIC: Denies current depression or suicidal thoughts. ENDOCRINE: Denies current thyroid disorders. Denies any blood sugar glucose intolerance. HEME/LYMPHATIC: Denies any lumps and bumps around the neck. No recent deep venous thrombosis. ALLERGY/IMMUNOLOGY: No immunoglobulin therapy. No immune deficiencies. BREAST: Denies current breast lumps, pain or nipple discharge. PHYSICAL EXAM: VITALS: Reviewed CONSTITUTIONAL: Well developed and in no acute distress. EYES: Conjuctivae without sclera icterus. Extraocular movements grossly intact. HEAD, EARS, NOSE, THROAT: Moist buccal mucosa. Head is atraumatic, normocephali c. Hears conversational speech. No nasal drainage. NECK: Supple. No JV distention. No thyroidomegaly. RESPIRATORY: Non-labored respirations and equal bilateral excursions. No gross wheezes. CARDIOVASCULAR: Palpable 2+ radial pulses. ABDOMEN: Tender right upper quadrant. LYMPH: No neck lymphadenopathy. MUSCULOSKELETAL: No clubbing cyanosis or edema SKIN: Warm and well perfused with good skin turgor. NEUROLOGIC: Cranial nerves II through XII grossly intact. No focal or lateralizing signs. PSYCH: Appropriate affect. Alert and oriented to person, place and time. Displays appropriate insight. CLINCAL LABS: Reviewed. WBC elevated at 12.4, leukocytosis IMAGING: Independently reviewed. CT of the abdomen and pelvis independently reviewed demonstrates multiple gallstones with inflammatory tissue. This is my independent interpretation. RADIOLOGY: Report reviewed. Multiple gallstones with finding of cholecystitis per computed tomography scan ASSESSMENT: 1. Abdominal pain, right upper quadrant 2. Cholecystitis 3. Leukocytosis 4. Symptomatic gallstones PLAN: 1. IV fluid hydration. 2. IV antibiotics prescribed. 3. Cholecystectomy described, buttock assisted approach Past Medical History Past Medical History: No Reported History History of Any Multi-Drug Resistant Organisms: None Reported Additional Past Surgical History / Comment(s): oral sx. Past Anesthesia/Blood Transfusion Reactions: No Reported Reaction Past Psychological History: No Psychological Hx Reported Smoking Status: Current some day smoker Past Alcohol Use History: Occasional, Rare Past Drug Use History: None Reported Medications and Allergies Home Medications Medication Instructions Recorded Confirmed Type No Known Home Medications 11/27/22 11/27/22 History Allergies Allergy/AdvReac Type Severity Reaction Status Date / Time No Known Allergies Allergy Verified 11/27/22 10:48 Surgical - Exam Vital Signs Temp Pulse Resp Pulse Ox 99.1 F 54 L 18 98 11/27/22 01:35 11/27/22 01:35 11/27/22 01:35 11/27/22 01:35 Results - Labs 11/27/22 02:22 11/27/22 02:22 Abnormal Lab Results - Last 24 Hours (Table) 11/27/22 11/27/22 11/27/22 Range/Units 02:22 02:22 02:22 WBC 12.7 H (3.8-10.6) k/uL Neutrophils # 9.6 H (1.3-7.7) k/uL Glucose 122 H (74-99) mg/dL Plasma Lactic Acid Srikanth 2.3 H* (0.7-2.0) mmol/L Total Bilirubin 1.6 H (0.2-1.3) mg/dL Diabetes panel 11/27/22 Range/Units 02:22 Sodium 138 (137-145) mmol/L Potassium 4.0 (3.5-5.1) mmol/L Chloride 105 (98-107) mmol/L Carbon Dioxide 22 (22-30) mmol/L BUN 9 (9-20) mg/dL Creatinine 1.00 (0.66-1.25) mg/dL Glucose 122 H (74-99) mg/dL Calcium 8.6 (8.4-10.2) mg/dL AST 27 (17-59) U/L ALT 35 (4-49) U/L Alkaline Phosphatase 73 (38-126) U/L Total Protein 6.9 (6.3-8.2) g/dL Albumin 4.2 (3.5-5.0) g/dL Calcium panel 11/27/22 Range/Units 02:22 Calcium 8.6 (8.4-10.2) mg/dL Albumin 4.2 (3.5-5.0) g/dL Pituitary panel 11/27/22 Range/Units 02:22 Sodium 138 (137-145) mmol/L Potassium 4.0 (3.5-5.1) mmol/L Chloride 105 (98-107) mmol/L Carbon Dioxide 22 (22-30) mmol/L BUN 9 (9-20) mg/dL Creatinine 1.00 (0.66-1.25) mg/dL Glucose 122 H (74-99) mg/dL Calcium 8.6 (8.4-10.2) mg/dL Adrenal panel 11/27/22 Range/Units 02:22 Sodium 138 (137-145) mmol/L Potassium 4.0 (3.5-5.1) mmol/L Chloride 105 (98-107) mmol/L Carbon Dioxide 22 (22-30) mmol/L BUN 9 (9-20) mg/dL Creatinine 1.00 (0.66-1.25) mg/dL Glucose 122 H (74-99) mg/dL Calcium 8.6 (8.4-10.2) mg/dL Total Bilirubin 1.6 H (0.2-1.3) mg/dL AST 27 (17-59) U/L ALT 35 (4-49) U/L Alkaline Phosphatase 73 (38-126) U/L Total Protein 6.9 (6.3-8.2) g/dL Albumin 4.2 (3.5-5.0) g/dL
[2022-11-27] MEDS ORDERED: SODIUM CHLORIDE 0.9% 2,000 ML IV ONE (13:43)
[2022-11-27] MEDS: ACETAMINOPHEN IV (For NPO) 1,000 MG in EMPTY BAG 1 BAG IVPB SCH ×2 (15:13→20:20)
[2022-11-27] MEDS: KETOROLAC 15 MG/ML 1 ML VIAL IVP SCH ×3 (15:14→23:44)
[2022-11-27] MEDS: HEPARIN SODIUM,PORCINE 5,000 UNIT/ML 1 ML VIAL SQ SCH (20:23)
[2022-11-28] MEDS: ACETAMINOPHEN IV (For NPO) 1,000 MG in EMPTY BAG 1 BAG IVPB SCH ×2 (02:33→07:57)
[2022-11-28] MEDS ORDERED: HEPARIN SODIUM,PORCINE 5,000 UNIT/ML 1 ML VIAL SQ PRN (05:00)
[2022-11-28] MEDS: SODIUM CHLORIDE 0.9% 1,000 ML IV SCH ×3 (05:54→22:02)
[2022-11-28] MEDS: KETOROLAC 15 MG/ML 1 ML VIAL IVP SCH ×3 (05:54→17:54)
[2022-11-28] MEDS: ONDANSETRON 4 MG/2 ML VIAL IVP PRN ×2 (05:58→11:54)
[2022-11-28] MEDS: HEPARIN SODIUM,PORCINE 5,000 UNIT/ML 1 ML VIAL SQ SCH ×2 (07:57→21:54)
[2022-11-28 09:01] LABS: Basophils # (A) 0.03 X 10*3/uL (0.00-0.10); Basophils % (A) 0.2 %; Eosinophils # (A) 0.07 X 10*3/uL (0.04-0.35); Eosinophils % (A) 0.6 %; HCT 42.1 % (39.6-50.0); HGB 14.1 d/dL (13.0-17.0); Lymphocytes # (A) 1.82 X 10*3/uL (0.90-5.00); Lymphocytes % (A) 14.7 %; MCH 28.9 pg (27.0-32.0); MCHC 33.5 d/dL (32.0-37.0); MCV 86.3 FL (80.0-97.0); Mean Platelet Volume 10.7 FL (9.5-12.2); Monocytes # (A) 0.85 X 10*3/uL (0.20-1.00); Monocytes % (A) 6.8 %; NRBC Per 100 WBC 0 X 10*3/uL (0.00-0.01); Neutrophils # (A) 9.58 X 10*3/uL (1.80-7.70); Neutrophils % (A) 77.2 %; Platelet Count 310 X 10*3/uL (140-440); RBC 4.88 X 10*6/uL (4.40-5.60); RDW 12.4 % (11.5-14.5); WBC 12.41 X 10*3/uL (4.50-10.00)
[2022-11-28 09:09] LABS: ALT 32 U/L (10-49); AST 20 U/L (14-35); Albumin/Globulin Ratio 2.35 Ratio (1.60-3.17); Alkaline Phosphatase 61 U/L (41-126); Blood Urea Nitrogen 10.9 mg/dL (9.0-27.0); Calcium 8.7 mg/dL (8.7-10.3); Carbon Dioxide 20.2 mmol/L (21.6-31.8); Chloride 109 mmol/L (96-109); Globulin 1.7 d/dL (1.6-3.3); Glucose 108 mg/dL (70-110); Potassium 3.7 mmol/L (3.5-5.5); Sodium 140 mmol/L (135-145); Total Bilirubin 2.8 mg/dL (0.3-1.2); Total Protein 5.7 d/dL (6.2-8.2)
[2022-11-28] MEDS ORDERED: INDOCYANINE GREEN 25 MG VIAL IV STA (09:42)
--- NOTE | 2022-11-28 10:15 | P.PN ---
Subjective Progress Note Date: 11/28/22 Still reports moderate right upper quadrant pain. Lifts 25 pounds for work. NPO. Cholecystectomy advised. Objective - Vital Signs Vital signs: Vital Signs Temp 98.4 F 11/28/22 07:00 Pulse 80 11/28/22 07:00 Resp 16 11/28/22 07:00 BP 134/79 11/28/22 07:00 Pulse Ox 100 11/28/22 07:00 FiO2 Intake & Output 11/27/22 11/28/22 11/28/22 18:59 06:59 18:59 Weight 95.254 kg Other: Voiding Method Toilet Toilet # Voids 2 1 # Bowel Movements 0 - Labs CBC & Chem 7: 11/28/22 06:15 11/28/22 06:15 Labs: Abnormal Lab Results - Last 24 Hours (Table) 11/28/22 11/28/22 Range/Units 06:15 06:15 WBC 12.41 H (4.50-10.00) X 10*3/uL Neutrophils # 9.58 H (1.80-7.70) X 10*3/uL Carbon Dioxide 20.2 L (21.6-31.8) mmol/L BUN/Creatinine Ratio 10.90 L (12.00-20.00) Ratio Total Bilirubin 2.8 H (0.3-1.2) mg/dL Total Protein 5.7 L (6.2-8.2) d/dL
[2022-11-28] MEDS ORDERED: LACTATED RINGERS 1,000 ML IV ONE ×2 (12:44→15:39)
[2022-11-28] MEDS ORDERED: DEXAMETHASONE SOD PHOSPHATE 4 MG/ML 1 ML VIAL IVP ONE (12:57)
[2022-11-28] MEDS ORDERED: SUCCINYLCHOLINE CHLORIDE 200 MG/10 ML VIAL IV ONE (13:44)
[2022-11-28] MEDS ORDERED: ROCURONIUM 10 MG/ML (5 ML VIAL) IV ONE (13:44)
[2022-11-28] MEDS ORDERED: GLYCOPYRROLATE 0.2 MG/ML 2 ML VIAL ONE (13:44)
[2022-11-28] MEDS ORDERED: ceFAZolin 1,000 MG VIAL ONE (13:44)
[2022-11-28] MEDS ORDERED: MIDAZOLAM 2 MG/2 ML VIAL ONE (13:44)
[2022-11-28] MEDS ORDERED: ALBUTEROL HFA INHALER INHALATION ONE (13:44)
[2022-11-28] MEDS ORDERED: KETAMINE 10 MG/ML 20 ML VIAL ONE (13:44)
[2022-11-28] MEDS ORDERED: PROPOFOL 10 MG/ML 20 ML VIAL IV ONE (13:44)
[2022-11-28] MEDS ORDERED: LIDOCAINE 2% INJ 20 MG/ML (2 ML VIAL) ONE (13:44)
[2022-11-28] MEDS ORDERED: SODIUM CHLORIDE 0.9% 100 ML BAG ONE (13:44)
[2022-11-28] MEDS ORDERED: HYDROmorphone (PF) 1 MG/ML ONE (13:44)
[2022-11-28] MEDS ORDERED: fentaNYL (PF) 50 MCG/ML 2 ML AMP ONE (13:44)
[2022-11-28] MEDS ORDERED: NEOSTIGMINE 1 MG/ML 10 ML VIAL ONE (13:44)
[2022-11-28] MEDS ORDERED: LIDOCAINE 0.5%-EPI 1:200,000 50 ML VIAL SQ ONE (14:24)
[2022-11-28] MEDS ORDERED: ALBUTEROL NEBULIZED 1.25 MG/3 ML INHALATION ONE (17:51)
[2022-11-28] MEDS ORDERED: METOCLOPRAMIDE 5 MG/ML 2 ML VIAL IVP PRN (18:19)
[2022-11-28] MEDS: HYDROmorphone 1 MG/ML 1 ML SYRINGE IVP PRN ×2 (18:21→21:54)
--- NOTE | 2022-11-28 18:22 | P.OP ---
Date of Procedure: 11/28/22 Description of Procedure: SURGEON: VITO BAUTISTA MD PREOPERATIVE DIAGNOSES: 1. Acute cholecystitis 2. Symptomatic gallstones POSTOPERATIVE DIAGNOSES: 1. Acute hemorrhagic gangrenous cholecystitis with cystic duct obstruction due to gallstones OPERATION: 1. Robotic-assisted da Radha Xi laparoscopic lysis of adhesions over 1 hour 2. Robotic-assisted da Radha Xi laparoscopic cholecystectomy, multiport with FIREFLY ESTIMATED BLOOD LOSS: 50 mL. SPECIMENS REMOVED: Gallbladder. COMPLICATIONS: None. OPERATIVE FINDINGS: 1. Acute hemorrhagic gangrenous cholecystitis with hydrops and distended gallbladder 2. Indocyanine green confirms acute cholecystitis with lack of contrast in gallbladder 3. Common bile duct within normal limits, without dilation 4. Robotic staplers 45 mm green staple load divided along infundibulum of gallbladder INDICATIONS: The patient is a 37 year-old male who presents with epigastric right upper quadrant pain, symptomatic gallstones, WBC over 11,000, and clinical features of acute cholecystitis. Antibiotic management including pain miguel gement was prescribed to manage cholecystitis. Surgical intervention with cholecystectomy was described. Robotic assisted laparoscopic approach was described. Benefits and risks of the procedure including but not limited to bleeding, infection, injury to the biliary tree was reviewed. Informed consent was obtained. DESCRIPTION OF PROCEDURE: Patient was brought to the operating room, placed in supine position. After general induction, the abdomen had been prepped and draped in standard sterile fashion. The robotic da Radha XI system was primed. After a timeout protocol was performed, the patient had been prepped and draped in standard sterile fashion. The patient was injected with indocyanine green. A 5 mm 0 degrees laparoscopic trocar entry was performed along the left upper quadrant. The abdomen insufflated to 15 mmHg pressure which was tolerated well. Diagnostic laparoscopy demonstrated no injury to bowel viscera or mesentery. The liver surface was unremarkable. A moderately distended gallbladder was identified adding complexity to the case. Next, two 8 mm robotic ports were placed along the right upper abdomen. The camera 8-mm port was maintained along the epigastrium. Another 8 mm port was placed along the left upper abdominal wall after exchanging the 5 mm port. Please note that the ports were placed at least 10 to 15 cm away from the target anatomy of the gallbladder. The robot was docked along the left lateral abdomen. The patient was repositioned in reverse Trendelenburg position at 21 with the right side up 70. Using a grasper for arm 3, a grasper for arm 4, including hook cautery for arm 1, the robotic system was docked and primed as described. Instruments were interchanged by the ophthalmology assistant including hook cautery, Bovie cautery and clip appliers. Additional instruments including vessel sealer, robotic suction engineering mathematician, robotic stapler were made available. I had sat at the console. The gallbladder was encased in surrounding tissue including the proximal transverse colon, omentum adding complexity to the case and requiring extensive lysis of adhesions using blunt and sharp dissection using vessel sealer including hook artery for over one hour. The gallbladder was reflected towards the dome of the liver. The gallbladder was moderately distended adding complexity to the case. Edema was found along the cystic triangle including infundibulum. Initial dissection was performed on the gallbladder infundibulum using indocyanine green to illuminate the cystic duct and common bile duct. Due to moderate distention of the infundibulum, dome down technique was performed removing the gallbladder from the hepatic fossa starting from the fundus towards the infundibulum. Using a sponge, the liver was reflected towards the diaphragm and starting at the gallbladder fundus, hook cautery was used between the liver and the gallbladder. The patient pre-existing easy bleeding from her skin incisions and from the liver bed requiring hemostatic agents such as fibular. As the gallbladder was dissected from the hepatic fossa, hemostasis was checked using vessel sealer along the posterior gallbladder. Next, indocyanine green was used to confirm the common bile duct as well as cystic duct. The entire gallbladder was without contrast consistent with acute cholecystitis. The infundibulum was retracted laterally away from the common bile duct. The left upper quadrant trocar was exchanged for a 12 mm robotic trocar. FIREFLY was used to identify the common bile duct. Robotic 45 mm green staple loads were fired across the infundibulum as the cystic duct and cystic structures were moderately edematous. Additionally, gallstone was impacted along the neck of the gallbladder. Bleeding along the liver bed was controlled and hemostatic agents. The abdomen was irrigated with normal saline solution of 1 L. Indocyanine green was used to confirm no bile leak from the staple line. Sponges were removed from the abdomen. The robot was undocked. I re-scrubbed into the case. A 10 mm Endo Catch bag was used to remove the gallbladder in total via the left upper quadrant incision after widening the incision. The specimen was removed from the abdominal cavity. Klever Scott and 0 Vicryl was used to close the fascial defect of the left upper quadrant. A round #19 drain was placed along the right upper quadrant at the hepatic fossa and exited via the right lateral trocar. A drain stitch 2-0 nylon was placed. All pneumoperitoneum instruments were evacuated from the abdominal cavity. The incisions were cleansed using dilute hydrogen peroxide. The incisions were reapproximated using 4-0 Monocryl in an interrupted subcuticular fashion. Please note along the trocar sites, local anesthetic was placed as a field block prior to insertion of all instruments. Liquid glue was applied to the skin. Optifoam was placed along the DAVID site for the left upper quadrant. At the end of the procedure needle, sponge, and instrument count had been verified correct by the ophthalmic surgical assistant. The patient was transferred to postanesthesia care unit in stable condition. Intraoperative films were shared with the patient's family who were pleased with the level of care.
[2022-11-28] MEDS: PANTOPRAZOLE 40 MG/10 ML VIAL IV SCH (18:33)
[2022-11-29] MEDS: KETOROLAC 15 MG/ML 1 ML VIAL IVP SCH ×5 (00:38→23:47)
[2022-11-29] MEDS: HYDROmorphone 1 MG/ML 1 ML SYRINGE IVP PRN ×4 (04:13→20:13)
[2022-11-29] MEDS: SODIUM CHLORIDE 0.9% 1,000 ML IV SCH ×3 (04:17→23:25)
[2022-11-29] MEDS ORDERED: SODIUM CHLORIDE 0.9% 2,000 ML IV ONE (08:14)
--- NOTE | 2022-11-29 08:17 | P.PN ---
Subjective Progress Note Date: 11/29/22 Principal diagnosis: Has headache. Nurse reports he is having headaches. Urine is very dark with hyperbilirubinemia. Recommend CMP, CBC. Scheduled tylenol for low grade fevers. High risk of choledocholithiasis. Full inpatient admission advised for cholecystitis with choledocholithiasis. GI consult advised for possible CBD stones Objective - Vital Signs Vital signs: Vital Signs Temp 99.6 F 11/29/22 00:58 Pulse 98 11/29/22 00:58 Resp 15 11/29/22 00:58 BP 116/71 11/29/22 00:58 Pulse Ox 94 L 11/29/22 00:58 FiO2 Intake & Output 11/28/22 11/29/22 11/29/22 18:59 06:59 18:59 Intake Total 1400 Output Total 50 300 Balance 1350 -300 Intake: IV 1400 Output: Urine 300 Estimated Blood Loss 50 Other: Voiding Method Toilet Toilet Urinal # Voids 1 3 - Labs CBC & Chem 7: 11/29/22 06:07 11/28/22 06:15 Labs: Abnormal Lab Results - Last 24 Hours (Table) 11/28/22 11/28/22 Range/Units 06:15 06:15 WBC 12.41 H (4.50-10.00) X 10*3/uL Neutrophils # 9.58 H (1.80-7.70) X 10*3/uL Carbon Dioxide 20.2 L (21.6-31.8) mmol/L BUN/Creatinine Ratio 10.90 L (12.00-20.00) Ratio Total Bilirubin 2.8 H (0.3-1.2) mg/dL Total Protein 5.7 L (6.2-8.2) d/dL
[2022-11-29 08:42] LABS: Basophils # (A) 0.01 X 10*3/uL (0.00-0.10); Basophils % (A) 0.1 %; Eosinophils # (A) 0.01 X 10*3/uL (0.04-0.35); Eosinophils % (A) 0.1 %; HCT 37.4 % (39.6-50.0); HGB 12.5 d/dL (13.0-17.0); Lymphocytes # (A) 1.62 X 10*3/uL (0.90-5.00); Lymphocytes % (A) 14.9 %; MCH 28.5 pg (27.0-32.0); MCHC 33.4 d/dL (32.0-37.0); MCV 85.4 FL (80.0-97.0); Mean Platelet Volume 10.5 FL (9.5-12.2); Monocytes # (A) 0.87 X 10*3/uL (0.20-1.00); NRBC Per 100 WBC 0 X 10*3/uL (0.00-0.01); Neutrophils # (A) 8.33 X 10*3/uL (1.80-7.70); Neutrophils % (A) 76.6 %; Platelet Count 276 X 10*3/uL (140-440); RBC 4.38 X 10*6/uL (4.40-5.60); RDW 12.3 % (11.5-14.5); WBC 10.87 X 10*3/uL (4.50-10.00)
[2022-11-29 08:56] LABS: ALT 91 U/L (10-49); AST 69 U/L (14-35); Albumin 3.6 d/dL (3.8-4.9); Albumin/Globulin Ratio 2.12 Ratio (1.60-3.17); Alkaline Phosphatase 54 U/L (41-126); BUN/Creat Ratio 11.44 Ratio (12.00-20.00); Blood Urea Nitrogen 10.3 mg/dL (9.0-27.0); Calcium 8.2 mg/dL (8.7-10.3); Carbon Dioxide 23.6 mmol/L (21.6-31.8); Chloride 105 mmol/L (96-109); Globulin 1.7 d/dL (1.6-3.3); Glucose 106 mg/dL (70-110); Potassium 3.6 mmol/L (3.5-5.5); Sodium 138 mmol/L (135-145); Total Bilirubin 2.5 mg/dL (0.3-1.2); Total Protein 5.3 d/dL (6.2-8.2)
[2022-11-29] MEDS: ACETAMINOPHEN TAB 500 MG TAB PO SCH ×3 (10:12→18:14)
[2022-11-29] MEDS: PANTOPRAZOLE 40 MG/10 ML VIAL IV SCH (10:12)
[2022-11-29] MEDS: HEPARIN SODIUM,PORCINE 5,000 UNIT/ML 1 ML VIAL SQ SCH ×3 (10:19→23:58)
--- NOTE | 2022-11-29 10:43 | P.CONS ---
History of Present Illness - Reason for Consult Consult date: 11/29/22 Possible CBD stones Requesting physician: Belle Weldon - Chief Complaint Abdominal pain, nausea and vomiting - History of Present Illness This is a pleasant 37-year-old male who presented to the emergency department 2 days ago with complaints of epigastric abdominal pain with nausea and vomiting. Patient states he has had ongoing nausea and vomiting 1-2 months ago, which subsided however Monday abdominal pain returned mostly in the mid abdomen to epigastric region. He presented to the emergency department for further evaluation. He was noted to have elevated total bilirubin of 1.[address] admission[address] Had a CT of the abdomen and pelvis with contrast showed cholelithiasis with surrounding fat stranding. No biliary ductal dilation. He was admitted for cholecystitis and underwent cholecystectomy yesterday with Dr. Weldon. Today he states he is feeling better. He just has surgical pain. He is eating regular diet, states he is passing gas. Denies any right upper quadrant pain any nausea or vomiting. He also was noted to have elevated total bilirubin back in September of this year at 2.0. Yesterday's labs bilirubin went up to 2.8 with normal LFTs. Today's repeat labs showed total bilirubin 2.5, AST 69 ALT 91 alkaline phosphatase 54. Review of Systems REVIEW OF SYSTEMS: CARDIOPULMONARY: No chest pain or shortness of breath. Gastrointestinal: No abdominal pain, other than surgical discomfort left upper quadrant No nausea or vomiting. No hematemesis, coffee-ground emesis. No rectal bleeding, or melena. GENITOURINARY: No dysuria or hematuria. MUSCULOSKELETAL: Reports normal range of motion. SKIN: No rashes. No jaundice. ENDOCRINE: No chills, fevers. No excessive weight gain or loss. No polydipsia or polyuria. PSYCHIATRIC: Unremarkable. NEUROLOGY: No change in mental status. Denies dizziness, headache. ENT: Vision unremarkable. CONSTITUTIONAL: No recent weight loss. No fever, chills, night sweats. Past Medical History Past Medical History: No Reported History History of Any Multi-Drug Resistant Organisms: None Reported Additional Past Surgical History / Comment(s): oral sx. Past Anesthesia/Blood Transfusion Reactions: No Reported Reaction Past Psychological History: No Psychological Hx Reported Smoking Status: Current some day smoker Past Alcohol Use History: Occasional, Rare Past Drug Use History: None Reported Medications and Allergies Home Medications Medication Instructions Recorded Confirmed Type No Known Home Medications 11/27/22 11/27/22 History Allergies Allergy/AdvReac Type Severity Reaction Status Date / Time No Known Allergies Allergy Verified 11/27/22 10:48 Physical Exam Vitals: Vital Signs Temp Pulse Resp BP Pulse Ox 11/29/22 07:00 99.0 F 90 17 106/71 92 L 11/29/22 00:58 99.6 F 98 15 116/71 94 L 11/28/22 22:33 99.1 F 11/28/22 21:54 106 H 11/28/22 19:09 99.4 F 106 H 15 129/75 92 L 11/28/22 18:20 98.0 F 99 16 141/80 93 L 11/28/22 17:56 97 19 135/74 97 11/28/22 17:40 110 H 24 140/80 95 11/28/22 17:25 97.4 F L 115 H 18 120/70 96 11/28/22 12:46 52 L 20 130/78 96 Intake and Output 11/28/22 11/29/22 11/29/22 22:59 06:59 14:59 Intake Total 600 Output Total 350 Balance 250 Intake: IV 600 Output: Urine 300 Estimated Blood Loss 50 Other: Voiding Method Toilet Urinal # Voids 3 General appearance: The patient is alert, oriented, appears in no acute distress. HET: Head is normocephalic and atraumatic. Conjunctiva pink. Sclera anicteric. Neck: Supple without lymphadenopathy. Trachea midline. Heart: S1 S2. Regular rate and rhythm. Lungs: Clear to auscultation. Abdomen: Soft, nontender, nondistended. No guarding or rigidity. Skin: No rashes. No jaundice. Extremities: Normal skin color and turgor. No pedal edema. Neurological: No focal deficits. Alert and oriented x3. Results CBC & Chem 7: 11/29/22 06:07 11/29/22 06:07 Labs: Abnormal Lab Results - Last 24 Hours (Table) 11/28/22 11/29/22 11/29/22 Range/Units 06:15 06:07 06:07 WBC 10.87 H (4.50-10.00) X 10*3/uL RBC 4.38 L (4.40-5.60) X 10*6/uL Hgb 12.5 L (13.0-17.0) d/dL Hct 37.4 L (39.6-50.0) % Neutrophils # 8.33 H (1.80-7.70) X 10*3/uL Eosinophils # 0.01 L (0.04-0.35) X 10*3/uL Carbon Dioxide 20.2 L (21.6-31.8) mmol/L BUN/Creatinine Ratio 10.90 L 11.44 L (12.00-20.00) Ratio Calcium 8.2 L (8.7-10.3) mg/dL Total Bilirubin 2.8 H 2.5 H (0.3-1.2) mg/dL AST 69 H (14-35) U/L ALT 91 H (10-49) U/L Total Protein 5.7 L 5.3 L (6.2-8.2) d/dL Albumin 3.6 L (3.8-4.9) d/dL CT scan - abdomen: report reviewed (Findings most consistent with acute cholecystitis with gallstones and surrounding inflammatory changes. This can be further confirmed with abdominal ultrasound.) Assessment and Plan (1) Hyperbilirubinemia Narrative/Plan: 37-year-old male presented for abdominal pain nausea and vomiting underwent imaging with concerns for acute cholecystitis, cholelithiasis. Patient underwent robotic cholecystectomy with findings of acute hemorrhagic gangrenous cholecystitis with cystic duct obstruction due to gallstones. Common bile duct within normal limits without dilation per operative report. Patient reports no right upper quadrant or epigastric pain at this time. Unclear etiology of hyperbilirubinemia, possible Gilbert's syndrome. Patient had no elevation in LFTs on admission. Mildly elevated LFTs postop day 1. Need to also consider possible choledocholithiasis however patient's symptoms and labs do not look like overall cholestatic pattern. MRCP ordered. Will repeat labs in the morning with fractionated bilirubin. Current Visit: Yes Status: Acute Code(s): E80.6 - OTHER DISORDERS OF BILIRUBIN METABOLISM SNOMED Code(s): 58583192 (2) Cholecystitis Current Visit: Yes Status: Acute Code(s): K81.9 - CHOLECYSTITIS, UNSPECIFIED SNOMED Code(s): 58671708 (3) Cholelithiasis Current Visit: Yes Status: Acute Code(s): K80.20 - CALCULUS OF GALLBLADDER W/O CHOLECYSTITIS W/O OBSTRUCTION SNOMED Code(s): 648205669 Plan: 1. Continue symptomatic and supportive care 2. Continue diet as tolerated 3. Repeat CMP, hepatic function panel with a fractionated bilirubin 4. MRCP ordered 5. Hold heparin for tomorrow morning 6. Nothing by mouth after midnight Thank you for this consultation, we will continue to follow. Dr. Argenis Spencer I agree with the dictator's note, documented as a scribe by Shelia Hassan.
[2022-11-30] MEDS: ACETAMINOPHEN TAB 500 MG TAB PO SCH ×3 (03:09→12:21)
[2022-11-30] MEDS: HYDROmorphone 1 MG/ML 1 ML SYRINGE IVP PRN (03:29)
[2022-11-30] MEDS: SODIUM CHLORIDE 0.9% 1,000 ML IV SCH ×2 (03:32→12:21)
[2022-11-30 05:00] LABS: ALT 77 U/L (4-49); AST 53 U/L (17-59); African American GFR (CKD) >90 (>60 ml/min/1.73 sqM); Albumin 2.9 g/dL (3.5-5.0); Albumin/Globulin Ratio 1.2; Alkaline Phosphatase 53 U/L (38-126); Anion Gap 6 mmol/L; Bilirubin,Unconjugated 2.9 mg/dL (0.0-1.1); Blood Urea Nitrogen 12 mg/dL (9-20); Carbon Dioxide 23 mmol/L (22-30); Chloride 106 mmol/L (98-107); Globulin 2.4 g/dL; Glucose 98 mg/dL (74-99); Non-African American GFR(CKD) >90 (>60 ml/min/1.73 sqM); Potassium 3.6 mmol/L (3.5-5.1); Sodium 135 mmol/L (137-145); Total Bilirubin 3.2 mg/dL (0.2-1.3); Total Protein 5.3 g/dL (6.3-8.2)
[2022-11-30] MEDS: KETOROLAC 15 MG/ML 1 ML VIAL IVP SCH ×2 (06:15→12:22)
[2022-11-30] MEDS: PANTOPRAZOLE 40 MG/10 ML VIAL IV SCH (09:08)
[2022-11-30 09:32] VITALS: BP 151/89; PULSE 63; RESP 18; TEMP 98.1
[2022-11-30 09:38] LABS: Basophils # (A) 0.03 X 10*3/uL (0.00-0.10); Basophils % (A) 0.4 %; Eosinophils # (A) 0.09 X 10*3/uL (0.04-0.35); Eosinophils % (A) 1.3 %; HCT 35.1 % (39.6-50.0); HGB 11.8 d/dL (13.0-17.0); Lymphocytes # (A) 1.35 X 10*3/uL (0.90-5.00); MCH 28.6 pg (27.0-32.0); MCHC 33.6 d/dL (32.0-37.0); MCV 85.2 FL (80.0-97.0); Mean Platelet Volume 12.5 FL (9.5-12.2); Monocytes # (A) 0.52 X 10*3/uL (0.20-1.00); Monocytes % (A) 7.3 %; NRBC Per 100 WBC 0 X 10*3/uL (0.00-0.01); Neutrophils # (A) 5.08 X 10*3/uL (1.80-7.70); Neutrophils % (A) 71.7 %; Platelet Count 287 X 10*3/uL (140-440); RBC 4.12 X 10*6/uL (4.40-5.60); RDW 12.3 % (11.5-14.5); WBC 7.09 X 10*3/uL (4.50-10.00)
--- NOTE | 2022-11-30 10:57 | P.PN ---
Subjective Progress Note Date: 11/30/22 Principal diagnosis: Cholelithiasis, hyperbilirubinemia This is a pleasant 37-year-old male who presented to the emergency department 2 days ago with complaints of epigastric abdominal pain with nausea and vomiting. Patient states he has had ongoing nausea and vomiting 1-2 months ago, which subsided however Monday abdominal pain returned mostly in the mid abdomen to epigastric region. He presented to the emergency department for further evaluation. He was noted to have elevated total bilirubin of 1.6 [address] admission[address] Had a CT of the abdomen and pelvis with contrast showed cholelithiasis with surrounding fat stranding. No biliary ductal dilation. He was admitted for cholecystitis and underwent cholecystectomy yesterday with Dr. Weldon. Today he states he is feeling better. He just has surgical pain. He is eating regular diet, states he is passing gas. Denies any right upper quadrant pain any nausea or vomiting. He also was noted to have elevated total bilirubin back in September of this year at 2.0. Yesterday's labs bilirubin went up to 2.8 with normal LFTs. Today's repeat labs showed total bilirubin 2.5, AST 69 ALT 91 alkaline phosphatase 54. 11/30/2022 Patient seen and examined today as a follow-up. He denies any abdominal pain or right upper quadrant pain. Patient states he is just sore from surgical discomfort. No nausea or vomiting. He has been afebrile. Today's labs WBC 7.09 hemoglobin 11.8 platelet count 287,000 total bilirubin 3.2 conjugated bili 0.0 unconjugated bili 2.9 AST 53 ALT 77 alkaline phosphatase 53. Objective - Vital Signs Vital signs: Vital Signs Temp 98.5 F 11/30/22 02:17 Pulse 81 11/30/22 02:17 Resp 16 11/30/22 02:17 BP 161/89 11/30/22 02:17 Pulse Ox 94 L 11/30/22 02:17 FiO2 Intake & Output 11/29/22 11/30/22 11/30/22 18:59 06:59 18:59 Intake Total 118 Balance 118 Intake: Oral 118 Other: Voiding Method Toilet Urinal # Voids 1 2 - Exam General appearance: The patient is alert, oriented, appears in no acute distress. HET: Head is normocephalic and atraumatic. Conjunctiva pink. Sclera anicteric. Neck: Supple without lymphadenopathy. Abdomen: Soft, mild tenderness at surgical site, surgical incisions well approximated, nondistended with bowel sounds. No guarding or rigidity. Extremities: Normal skin color and turgor. No pedal edema Skin: No rashes, no jaundice Neurological: No focal deficits. Alert and oriented. - Labs CBC & Chem 7: 11/30/22 04:08 11/30/22 04:08 Labs: Abnormal Lab Results - Last 24 Hours (Table) 11/29/22 11/29/22 11/30/22 Range/Units 06:07 06:07 04:08 WBC 10.87 H (4.50-10.00) X 10*3/uL RBC 4.38 L (4.40-5.60) X 10*6/uL Hgb 12.5 L (13.0-17.0) d/dL Hct 37.4 L (39.6-50.0) % Neutrophils # 8.33 H (1.80-7.70) X 10*3/uL Eosinophils # 0.01 L (0.04-0.35) X 10*3/uL Sodium 135 L (137-145) mmol/L BUN/Creatinine Ratio 11.44 L (12.00-20.00) Ratio Calcium 8.2 L 8.0 L (8.7-10.3) mg/dL Total Bilirubin 2.5 H 3.2 H (0.3-1.2) mg/dL Unconjugated Bilirubin 2.9 H (0.0-1.1) mg/dL AST 69 H (14-35) U/L ALT 91 H 77 H (10-49) U/L Total Protein 5.3 L 5.3 L (6.2-8.2) d/dL Albumin 3.6 L 2.9 L (3.8-4.9) d/dL Assessment and Plan (1) Hyperbilirubinemia Narrative/Plan: 37-year-old male presented for abdominal pain nausea and vomiting underwent imaging with concerns for acute cholecystitis, cholelithiasis. Patient underwent robotic cholecystectomy with findings of acute hemorrhagic gangrenous cholecystitis with cystic duct obstruction due to gallstones. Common bile duct within normal limits without dilation per operative report. Patient reports no right upper quadrant or epigastric pain at this time. Unclear etiology of hyperbilirubinemia, possible Gilbert's syndrome. Patient had no elevation in LFTs on admission. Mildly elevated LFTs postop day 1. Need to also consider possible choledocholithiasis however patient's symptoms and labs do not look like overall cholestatic pattern. MRCP ordered. Will repeat labs in the morning with fractionated bilirubin. Bilirubin fractionated total bilirubin 3.2 conjugated bilirubin 0.0 and unconjugated bilirubin at 2.9. LFTs trending down. There is no evidence for choledocholithiasis. MRCP canceled and no indication for ERCP. Current Visit: Yes Status: Acute Code(s): E80.6 - OTHER DISORDERS OF BILIRUBIN METABOLISM SNOMED Code(s): 93955924 (2) Cholecystitis Current Visit: Yes Status: Acute Code(s): K81.9 - CHOLECYSTITIS, UNSPECIFIED SNOMED Code(s): 11984936 (3) Cholelithiasis Current Visit: Yes Status: Acute Code(s): K80.20 - CALCULUS OF GALLBLADDER W/O CHOLECYSTITIS W/O OBSTRUCTION SNOMED Code(s): 336323730 Plan: 1. Continue symptomatic and supportive care 2. Patient may have low-fat diet 3. Repeat CMP, hepatic function panel with a fractionated bilirubin reviewed 4. MRCP canceled 5. There is no indication for MRCP or ERCP at this time 6. No further workup per gastroenterology, patient is cleared for discharge from gastroenterology 7. Continue with recommendations from general surgery Thank you for this consultation, we will continue to follow. Dr. Argenis Spencer I agree with the dictator's note, documented as a scribe by Shelia Hassan.
--- NOTE | 2022-11-30 12:49 | P.DS ---
Providers Date of admission: 11/28/22 18:19 Expected date of discharge: 11/30/22 Attending physician: Belle Weldon Consults: 11/27/22 13:41 Consult Physician Routine Consulting Provider: [facility] Consult Reason/Comments: [facility] Do you want consulting provider notified?: Yes 11/29/22 08:52 Consult Physician Routine Consulting Provider: Keyonna Spencer Consult Reason/Comments: Possibe CBD stones Do you want consulting provider notified?: Yes Primary care physician: Stated None Hospital Course: Discharge diagnoses 1. Acute hemorrhagic gangrenous cholecystitis with cystic duct obstruction due to gallstones Hospital course The patient is a 37 year-old male who presents with epigastric right upper quadrant pain, symptomatic gallstones, WBC over 11,000, and clinical features of acute cholecystitis. Patient status post robotic-assisted laparoscopic lysis of adhesions and laparoscopic cholecystectomy. Patient tolerated surgery well. His pain is controlled. He is tolerating diet. He has been up ambulating. He is afebrile. Patient initially seen by GI service due to elevated bilirubin and LFTs with concerns of possible choledocholithiasis. Patient was seen by GI service. They felt that there was no evidence of choledocholithiasis and have cleared patient for discharge. Patient is stable for discharge. Physician Farmer And Grazier note has been reviewed by physician. Signing provider agrees with the documented findings, assessment, and plan of care. Patient Condition at Discharge: Stable Plan - Discharge Summary Discharge Rx Participant: No New Discharge Prescriptions: New Ibuprofen [Motrin] 600 mg PO Q8HR PRN #30 tab PRN Reason: Pain Acetaminophen Tab [Tylenol] 1,000 mg PO Q6HR PRN #30 tablet PRN Reason: Pain Discharge Medication List Acetaminophen Tab [Tylenol] 1,000 mg PO Q6HR PRN #30 tablet 11/30/22 [Rx] Ibuprofen [Motrin] 600 mg PO Q8HR PRN #30 tab 11/30/22 [Rx] Follow up Appointment(s)/Referral(s): None,Stated [Primary Care Provider] - 1-2 days Belle Weldon MD [STAFF PHYSICIAN] - 12/06/22 Activity/Diet/Wound Care/Special Instructions: Wear abdominal binder at all times for comfort. No lifting over 4 pounds in 4 weeks You May shower. No bath tub soaks for two weeks Use Tylenol and ibuprofen scheduled for the next 24-48 hours for best pain relief. Use ice along incisions for the today to prevent swelling. Discharge Disposition: HOME SELF-CARE
== END 2022-11-30 16:35 | disposition home or self-care (01) | DRG 263 ==
LOC: EC 01:33 → 6NMEDSUR 08:06 → OBSVTOIN 11-28 18:19
PROVIDERS: ADMIT Surgery Plastic and Reconstructive Surgery; ATTEND Surgery Plastic and Reconstructive Surgery
PROC: 0DNL4ZZ Release Transverse Colon, Percutaneous Endoscopic Approach (ICD-10-PCS; principal; 2022-11-28 11:00)
PROC: 0FT44ZZ Resection of Gallbladder, Percutaneous Endoscopic Approach (ICD-10-PCS; principal; 2022-11-28 11:00)
PROC: 0DNU4ZZ Release Omentum, Percutaneous Endoscopic Approach (ICD-10-PCS; principal; 2022-11-28 11:00)
PROC: 8E0W4CZ Robotic Assisted Procedure of Trunk Region, Percutaneous Endoscopic Approach (ICD-10-PCS; principal; 2022-11-28 11:00)
PROC: BF53200 Other Imaging of Gallbladder and Bile Ducts using Fluorescing Agent, Indocyanine Green Dye, Intraoperative (ICD-10-PCS; principal; 2022-11-28 11:00)
DX: K80.63 Calculus of gallbladder and bile duct with acute cholecystitis with obstruction (principal); K82.A1 Gangrene of gallbladder in cholecystitis; Z28.310 Unvaccinated for COVID-19; K66.0 Peritoneal adhesions (postprocedural) (postinfection); E80.4 Gilbert syndrome; R51.9 Headache, unspecified; F17.200 Nicotine dependence, unspecified, uncomplicated
CPT/HCPCS: 36415; 74177; 80053; 80076; 82150; 83605; 83690; 85025; 85610; 85730; 88304; 93005; 96361; 96374; 96375; 96376; 99285

== ENCOUNTER → 2024-06-21 | Outpatient (CLI) | payer OTHER, MEDICARE ==
--- NOTE | 2024-06-24 09:09 | MR ---
EXAMINATION TYPE: MR knee LT wo con DATE OF EXAM: 06/21/2024 8:31 PM COMPARISON: None. CLINICAL INDICATION: Male, 39 years old with history of M25.562 PAIN IN LEFT KNEE; [facility], Left knee stephani n since Jan 2024 TECHNIQUE: Multi planar, multi sequence imaging was performed of the knee including: Triplane proton density fat-saturated images and T1-weighted imaging. No Gadolinium was given. IV Contrast: mL (none if empty) FINDINGS: Medial meniscus: Vertical tear through the posterior horn and body, undersurface tear of the meni scal body with extrusion into the gutter series 501 image 18. Medial femorotibial cartilage: Grade-II chondromalacia. Medial collateral ligament: Intact Lateral meniscus: Intact Lateral femorotibial cartilage: Grade-II chondromalacia. Lateral collateral ligament complex: Intact Patellofemoral alignment: Normal Patellofemoral cartilage: Intact Extensor mechanism: Intact. Joint/bursal fluid: Small joint effusion present. Muscles/tendons: The patellar tendon, quadriceps tendon, IT band, pes anserinus tendons, semimembrano julee tendon, popliteus tendon, and biceps femoris tendon are all within normal limits. Bone marrow: Normal. Anterior cruciate ligament: Intact. Posterior cruciate ligament: Intact. Soft tissues: Tiny Villeda's cyst noted. IMPRESSION: 1. Medial meniscus posterior horn and body vertical tears. 2. Undersurface tear of the medial meniscal body with extrusion into the gutter. 3. No definitive evidence to suggest ligamentous injury. [facility], , 06/24/2024 9:07 AM
== END | disposition home or self-care (01) ==
LOC: RADMRIMAIN 20:15
PROVIDERS: ATTEND Family Medicine
DX: S83.242A Other tear of medial meniscus, current injury, left knee, initial encounter (principal); M94.262 Chondromalacia, left knee; X58.XXXA Exposure to other specified factors, initial encounter